=== PATIENT | male | born 1985 | race Two or more races ===

== ENCOUNTER 2017-11-18 11:57 | Inpatient (IN) | payer BC, OTHER ==
[~2017-11-18] VITALS: Ht 177.8 cm; Wt 83.9 kg
[2017-11-18 16:00] VITALS: BP 134/86
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
[2017-11-18] MEDS ORDERED: IBUPROFEN 600 MG TABLET PO PRN (16:30)
[2017-11-18] MEDS ORDERED: MAGNESIUM HYDROXIDE 30 ML LIQUID UDC PO PRN (16:30)
[2017-11-18] MEDS ORDERED: ONDANSETRON 4 MG/2 ML VIAL IM PRN (16:30)
[2017-11-18] MEDS ORDERED: MAG HYDROX/AL HYDROX/SIMETH 30 ML LIQUID UDC PO PRN (16:30)
[2017-11-18] MEDS ORDERED: MIRALAX 17 GM POWD.PACK PO PRN (16:30)
[2017-11-18] MEDS ORDERED: NICOTINE 14 MG/24HR PATCH TD PRN (16:30)
[2017-11-18] MEDS ORDERED: NICOTINE POLACRILEX 4 MG GUM-PK OF TEN BC PRN (16:30)
[2017-11-18] MEDS ORDERED: HYDROXYZINE PAMOATE 25 MG CAPSULE PO PRN (16:30)
[2017-11-18] MEDS ORDERED: diphenhydrAMINE 50 MG CAPSULE PO PRN (16:30)
[2017-11-18] MEDS ORDERED: ACETAMINOPHEN 325 MG TABLET PO PRN (16:30)
[2017-11-18] MEDS ORDERED: LORAZEPAM 1 MG TABLET PO PRN (16:30)
[2017-11-18] MEDS ORDERED: CLONIDINE HCL 0.1 MG TABLET PO PRN (16:30)
[2017-11-18] MEDS ORDERED: LOPERAMIDE HCL 2 MG CAPSULE PO PRN ×2 (16:30)
[2017-11-18] MEDS ORDERED: ONDANSETRON ODT 4 MG TAB.RAPDIS SL PRN (16:30)
[2017-11-18] MEDS ORDERED: BUPRENORPHINE HCL 2 MG TAB.SUBL SL PRN (16:30)
[2017-11-18 17:03] LABS: *AMPHETAMINE, URINE NEGATIVE (NEGATIVE); *BARBITURATE, URINE NEGATIVE (NEGATIVE); *CANNABINOID, URINE NEGATIVE (NEGATIVE); *COCCAINE, URINE NEGATIVE (NEGATIVE); *OPIATE, URINE POSITIVE (NEGATIVE); *PHENCYCLIDINE SCREEN,URINE NEGATIVE (NEGATIVE)
[2017-11-18 17:40] LABS: BASOPHILS % (AUTO) 0.8 % (0.0-2.0); EOSINOPHILS # (AUTO) 0.2 K/uL (0.0-0.7); EOSINOPHILS % (AUTO) 2.5 % (0.0-7.0); HEMATOCRIT 42.5 % (36.7-47.1); HEMOGLOBIN 14.6 g/dL (12.5-16.3); LYMPHOCYTES # (AUTO) 2.4 K/uL (20.0-40.0); LYMPHOCYTES % (AUTO) 39.1 % (20.5-51.5); MEAN CORPUSCULAR HEMOGLOBIN 30.7 uug (23.8-33.4); MEAN CORPUSCULAR HGB CONC 34 g/dL (32.5-36.3); MEAN CORPUSCULAR VOLUME 89.2 fL (73.0-96.2); MONOCYTES # (AUTO) 0.4 K/uL (2.0-10.0); MONOCYTES % (AUTO) 7.4 % (0.0-11.0); NEUTROPHILS # (AUTO) 3.1 K/uL (1.8-8.9); NEUTROPHILS % (AUTO) 50.2 % (38.5-71.5); PLATELET COUNT (AUTO) 251 K/uL (152-348); RED BLOOD CELL COUNT(AUTO) 4.77 MIL/uL (4.06-5.63); WHITE BLOOD COUNT (AUTO) 6.1 K/uL (3.6-10.2)
--- NOTE | 2017-11-18 17:49 | NUR ---
ADMISSION: A 5 YO MALE ADMITTED FOR MEDICALLY SUPERVISED W/D OF NORCO (OPIATES). HE PRESENTS WITH BLUNTED AFFECT AND SAD MOOD. HE IS A/O X 4 WITH WARM DRY SKIN INTACT. HIS PUPILS ARE PIN POINTED. HE BECAME TEARFUL DURING ASSESSMENT. HE STATES HE USES 120 MG OF NORCO AT 1030 THIS AM AND IS NOT FEELING SICK YET. HE STATES HE IS TAKING 240 MG PO PER DAY IN THIS PATTERN FOR 4 MONTHS WITH A 5 YEAR HISTORY OF USE.HE STATES HE MADE AN ATTEMPT TO QUIT ON HIS OWN 5 MONTHS AGO AND LASTED A MONTH BUT HE JUST COULDN'T COPE WITH EVERY DAY STRESSES AND THE CRAVINGS WERE TOO MUCH. HE HAS NEVER BEEN IN DETOX OR TREATMENT. HE STATES HE USED FOR BACK PAIN 5 YEARS AGO BUT NOW HE JUST USES BECAUSE HE HAS TO AND CANNOT STOP. HE LIVES WITH LONG TIME GIRLFRIEND AND 3 KIDS. HE STATES IT IS STRAINING HIS RELATIONSHIP AND FINANCES. HE STATES HE IS AFRAID THAT HE WILL IF HE DOESN'T STOP USING AND NEEDS HELP. HE REPORTS A HX OF ANXIETY,DEPRESSION AND HERNIATED DISC TO LOWER BACK . HE STATES HE TAKES NO HOME MEDS AND BROUGHT NONE. HE DENIES A PCP. HE DENIES S/I AND H/I. ORIENTED PT TO STAFF AND UNIT. OFFERED SUPPORT. REASSURED PT THAT NURSING STAFF IS AVAILABLE 03/02 . WILL PROVIDE SAFE AND SUPPORTIVE ENVIRONMENT AND MANAGE S/S OF W/D.
[2017-11-18 17:58] LABS: ALANINE AMINOTRANSFERASE 37 U/L (16-63); ALKALINE PHOSPHATASE 70 U/L (50-136); ASPARTATE AMINOTRANSFERASE 21 U/L (15-37); BILIRUBIN,TOTAL 0.9 mg/dL (0.2-1.0); CARBON DIOXIDE 30 mmol/L (21-32); CHLORIDE 100 mmol/L (98-107); CREATININE 0.9 mg/dL (0.6-1.3); ETHANOL < 3 MG/DL (0-0); GLUCOSE 94 mg/dL (74-106); MAGNESIUM 2.1 mg/dL (1.8-2.4); POTASSIUM 3.8 mmol/L (3.5-5.1); UREA NITROGEN, BLOOD 9 mg/dL (7-18)
--- NOTE | 2017-11-18 18:45 | NUR ---
END OF SHIFT: PT WAS ADMITTED LATE THIS AFTERNOON FOR OPIATE W/D FROM [place]. HE IS LAYING IN BED AND MILDLY INTOXICATED AT TGIS TIME SO COWS DEFERRED. HE IS WATCHING TV WITH BED LOCKED AND LOW AND CALL ROGERS IN REACH. HE IS INCREASING FLUID INTAKE ENCOURAGED. WILL PASS SHIFT REPORT TO ONCOMING NIGHT NURSE.
[2017-11-18 20:00] VITALS: BP 132/91
--- NOTE | 2017-11-18 20:00 | NUR ---
Start of Shift Note Received a 32 y/o male px, admitted for medically supervised withdrawal from [place] and marijuana. Px will be placed on 5 day Subutex taper to start on 11/19/2017. On PRN Subutex today. No reported COWS from AM shift due to intoxication, no withdrawal signs yet. During the rounds at 1999, px is awake on bed in fowlers position, watching TV. Px appears disheveled and unshaven with good eye contact. Px is not experiencing withdrawals yet. Px stated that he has anxiety of 5/10. Px requested for a pill to help him sleep tonight. Bed on lowest position, side rails up 2x, and call light within reach. We'll continue to monitor.
--- NOTE | 2017-11-18 21:00 | NUR ---
PRN medications Benadryl 50 mg/cap, 1 cap given PO as PRN med for insomnia. Clonidine 0.1 mg/tab, 1 tab given PO as PRN for anxiety. We'll continue to monitor.
[2017-11-18 22:00] VITALS: BP 123/86
--- NOTE | 2017-11-18 22:00 | NUR ---
Reassessment of Anxiety Px stated that his anxiety improved to 3-4/10 after an hour of administration of Clonidine 0.1 mg PO. BP= 123/86. We'll continue to monitor.
[2017-11-19] VITALS: BP 109/63
[2017-11-19 04:00] VITALS: BP 111/66
--- NOTE | 2017-11-19 04:00 | NUR ---
COWS deferred COWS deferred at 0000 and 0400 due to the px is asleep, to assess if the px is awake per doctor's order. We'll continue to monitor.
--- NOTE | 2017-11-19 07:10 | NUR ---
End of Shift Note During the shift at 2100, px received Benadryl 50 mg PO for insomnia and Clonidine 0.1 mg PO as PRN medications. They were effective. Px's oral intake is 500 ml, voided 2x, No BM. Px slept for 8 hours. At 0630, px is asleep on bed in left side lying position. COWS deferred due to the px is intoxicated and/or asleep. Bed on lowest position, side rails up 2x, and call light within reach. We'll continue to monitor. Px endorsed to AM shift nurse.
[2017-11-19 08:00] VITALS: BP 118/65
--- NOTE | 2017-11-19 08:15 | NUR ---
START OF SHIFT: RECEIVED PT A/O X 4. HE PRESENTS WITH BLUNTED AFFECT AND DEPRESSED MOOD. HE IS FIDGETY AND HIS LEGS ARE MOVING CONSTANTLY DURING ASSESSMENT. HE DENIES S/I AND H/I.HE STATES HE SLEPT VERY RESTLESS AND APPETITE IS POOR. HE REPORTS BODY ACHES,RESTLESSNESS,ANXIETY,IRRITABILITY,RUNNY NOSE AND YAWNING. COWS 15. SUBUTEX ADMINISTERED ORDERED. WILL CONTINUE TO MONITOR AND MANAGE S/S OF W/D.
[2017-11-19] MEDS: BUPRENORPHINE HCL 2 MG TAB.SUBL SL SCH ×3 (08:57→21:18)
[2017-11-19] MEDS ORDERED: TUBERCULIN,PURIF.PROT.DERIV. 5 TU/0.1 ML TEST ID ONE (09:00)
[2017-11-19 12:00] VITALS: BP 133/77
[2017-11-19 16:00] VITALS: BP 93/63
--- NOTE | 2017-11-19 18:56 | NUR ---
END OF SHIFT: PT STARTED SUBUTEX TAPER THIS AM. HE C/O BODY ACHES,SWEATS, CHILLS,ANXIETY AND RESTLESSNESS. LAST COWS 13. HE WAS COMPLIANT WITH INCREASED FLUID INTAKE ENCOURAGED AND REST. PPD IMPLANTED TO LFA. HE STATES THE DETOX MEDS ARE EFFECTIVE. NO PRNS GIVEN. WILL PASS SHIFT REPORT TO ONCOMING NIGHT NURSE.
--- NOTE | 2017-11-19 19:30 | NUR ---
START OF SHIFT Pt is a 32 y/o male admitted on 11/18/17 for opiate withdrawal. Pt is on a 5 day Subutex taper that started today, tolerating well. Last CIWA 13 and no PRNs administered during day shift. Upon assessment, pt presents with anxiety, restlessness, difficulty falling asleep, body aches 6/10, sweats, headache, unkempt room, flat affect, poor eye contact, anhedonia, dysphoria and is isolative. Medications due. Safety measures in place. Call light within reach. Will continue to monitor.
[2017-11-19 20:00] VITALS: BP 112/66
[2017-11-19] MEDS: CLONIDINE HCL 0.1 MG TABLET PO SCH (21:00)
[2017-11-19] MEDS: TRAZODONE 50 MG TABLET PO PRN (21:18)
[2017-11-19] MEDS: GABAPENTIN 300 MG CAPSULE PO SCH (21:18)
--- NOTE | 2017-11-19 21:18 | NUR ---
PRN TRAZODONE, VISTARIL AND ROBAXIN ADMINISTRATION Pt requests Trazodone for sleep aid and complains of anxiety and body aches 12/21. Appears anxious and restless. Safety measures in place. Call light within reach. Will continue to monitor.
[2017-11-19] MEDS: METHOCARBAMOL 750 MG TABLET PO PRN (21:21)
--- NOTE | 2017-11-19 22:18 | NUR ---
PRN TRAZODONE, VISTARIL AND ROBAXIN REASSESSMENT Pt laying in bed with eyes closed, medications noted effective. Respirations even and unlabored. Safety measures in place. Call light within reach. Will continue to monitor.
[2017-11-20] VITALS: BP 104/55
--- NOTE | 2017-11-20 | NUR ---
COWS DEFERRED Pt laying in bed with eyes closed, COWS deferred, to be assessed when pt is awake per orders. Respirations even and unlabored. Safety measures in place. Call light within reach. Will continue to monitor.
[2017-11-20 04:00] VITALS: BP 109/58
--- NOTE | 2017-11-20 07:00 | NUR ---
END OF SHIFT Pt is a 32 y/o male admitted on 11/18/17 for opiate withdrawal. Pt is on a 5 day Subutex taper that started on 11/19/17, tolerating well. Pt presented with anxiety, restlessness, difficulty falling asleep, body aches 6/10, sweats, headache, unkempt room, flat affect, poor eye contact, anhedonia, dysphoria and is isolative. Scheduled medications and PRN Trazodone, Vistaril and Robaxin administered, effective in S/S of withdrawal as verbalized by pt. Last COWS 9. Pt slept 8 hours. Intake 1355 ml, void x 3, stool x 1. Safety measures in place. Call light within reach. Pts needs have been met. Endorsed to day shift nurse.
--- NOTE | 2017-11-20 07:20 | NUR ---
Start of Shift Notes: Received patient in his room. Alert and oriented x 4. Verbally responsive. Denies S/I or H/I. No AV hallucinations noted. Patient is a 32 year old male admitted for opiate withdrawal who was placed on a 5-day Subutex taper as ordered. No adverse reactions noted. Has past medical hx of anxiety, depression and herniated disc. He states "I feel OK, I just woke up though." Educated patient on his current plan of care for the day and his medication regimen. Encouraged oral fluid intake and encouraged group participation to learn new skills to prevent relapse. Will continue to monitor.
[2017-11-20 08:00] VITALS: BP 105/64
[2017-11-20 08:06] LABS: HEPATITIS B SURFACE AG Negative (Negative)
[2017-11-20] MEDS: GABAPENTIN 300 MG CAPSULE PO SCH ×2 (08:35→21:08)
[2017-11-20] MEDS: CLONIDINE HCL 0.1 MG TABLET PO SCH ×2 (08:35→21:07)
[2017-11-20] MEDS ORDERED: BUPRENORPHINE HCL 2 MG TAB.SUBL SL SCH (09:00)
[2017-11-20 12:00] VITALS: BP 97/55
[2017-11-20] MEDS: BUPRENORPHINE HCL 2 MG TAB.SUBL SL SCH ×2 (14:00→21:07)
--- NOTE | 2017-11-20 14:03 | NUR ---
Client was prompted to attend group counseling sessions twice daily. Client stated he would attend this afternoon's group session as he is feeling less fatigued.
[2017-11-20 16:00] VITALS: BP 126/84
--- NOTE | 2017-11-20 19:05 | NUR ---
End of Shift Notes: Patient continues to be on 5-day Subutex taper as ordered. No adverse reactions noted. VS monitored closely. No significant abnormalities noted. Withdrawal symptoms were closely monitored. Initial COWS 10, patient presented with restlessness, myalgia, pupil dilation, anxiety, agitation, chills and hot flashes. Last COWS 8. Per patient, Subutex has been effective in reducing his withdrawal symptoms. He was encouraged to participate in group and activities due to his withdrawal symptoms. He isolates self at times and requires encouragement to socialize with his peers. Seen and examined by Dr. Mukherjee today. All needs met and attended. Will continue to monitor closely.
--- NOTE | 2017-11-20 19:30 | NUR ---
Start of Shift Note Received a 32 y/o male px, admitted for medically supervised withdrawal from [place] and marijuana. Px is placed on 5 day Subutex taper started on 11/19/2017. Px is tolerating it. Last reported COWS 8 from AM shift nurse. During the rounds at 1930, px is awake on bed in fowlers position, watching TV. Px appears disheveled and unshaven. Room is odorous. Unfinished drinks noted on top of bed side table. Px stated that he has anxiety of 2/10 and H/A of 6/10. Px requested for a pill to help him sleep tonight. Bed on lowest position, side rails up 2x, and call light within reach. We'll continue to monitor.
[2017-11-20 20:00] VITALS: BP 132/82
[2017-11-20] MEDS: TRAZODONE 50 MG TABLET PO PRN (21:16)
--- NOTE | 2017-11-20 21:16 | NUR ---
PRN medications At 2106, px received Motrin 600 mg/tab, 1 tab PO as PRN for H/A of 12/21. At 2115, px received Desyrel 50 mg/tab, 1 tab PO as PRN for insomnia. We'll continue to monitor.
--- NOTE | 2017-11-20 22:10 | NUR ---
Reassessment of H/A Px stated that his H/A is gone after an hour of administration of Motrin 600 mg PO.
[2017-11-21] VITALS: BP 104/54
[2017-11-21 04:00] VITALS: BP 111/59
--- NOTE | 2017-11-21 07:02 | NUR ---
End of Shift Note During the shift at 2106, px received Motrin 600 mg PO for H/A of 12/21 as PRN medication. It was effective. At 2115, Desyrel 50 mg given PO as PRN medication for insomnia. It was effective. Px slept for total of 8.5 hours. Px's oral intake is 1,200 ml, voided 3x, with No BM. At 0630, px is asleep on bed in right side lying position. Last COWS 6. Bed on lowest position, side rails up 2x, and call light within reach. We'll continue to monitor. Px is endorsed to AM shift nurse.
--- NOTE | 2017-11-21 07:30 | NUR ---
Start of Shift Rv Detailer received report on 32 year old male admitted to [facility] on 11/18/17 for medical management of Opiate withdrawals. Pt endorses NKA, full code and regular diet. Pt endorses PMH of herniated disc and a PPH of anxiety and depression. Pt currently on Subutex taper, tolerating well with last COWS 6, per report. Pt was administered Trazodone(insomnia) and Motrin(pain) on NOC, per report. Rv Detailer encounters pt in his room resting with eyes closed, rise and fall of chest noted, with even and unlabored respiration. Bed in low positions with wheels locked and side rails up x2. Will continue to monitor, support and encourage according to plan of care.
[2017-11-21 08:34] VITALS: BP 95/54
[2017-11-21] MEDS: BUPRENORPHINE HCL 2 MG TAB.SUBL SL SCH ×3 (08:51→20:28)
[2017-11-21] MEDS: GABAPENTIN 300 MG CAPSULE PO SCH ×3 (08:51→20:27)
[2017-11-21] MEDS: METHOCARBAMOL 750 MG TABLET PO PRN (08:51)
--- NOTE | 2017-11-21 08:51 | NUR ---
SONNY Garcia Pt complain of muscle spasms with pain 01/20, pt has attempted non-pharmacological intervention with no relief. Engine Test Cell Technician administered medication to order and pt toelrated well. Will continue to monitor, support and encourage according to plan of care.
[2017-11-21] MEDS: CLONIDINE HCL 0.1 MG TABLET PO SCH ×2 (08:52→20:29)
--- NOTE | 2017-11-21 09:51 | NUR ---
PRN Re-Assessment Pt endorses relief, pain at 4/10. Will continue to monitor, support and encourage according to plan of care.
[2017-11-21] MEDS ORDERED: ASPIRIN/ACETAMINOPHEN/CAFFEINE TABLET PO PRN (10:30)
[2017-11-21] MEDS ORDERED: KETOROLAC TROMETHAMINE 30 MG INJ IM PRN (10:30)
[2017-11-21 12:23] VITALS: BP 119/81
[2017-11-21 16:30] VITALS: BP 114/74
--- NOTE | 2017-11-21 18:50 | NUR ---
START OF SHIFT NOTE: Presented patient is a 32 year male admitted for safety withdrawal under medical supervision from Opioid/"[place] PO" and Marijuana. The patient continues 5 Day Subutex Taper since 11/19/2017, which tolerated well. Patient is alert and oriented x4. He is appears worry, agitated with anxious mood. Speech is clear and soft. The most recent COWS=6 per day shift nurse report. During the day shift patient presented with symptoms of withdrawal of anxiety, agitation, nervousness, body aches, myalgia, tremors, nasal congestion, restlessness, and fatigue. VSWNL. PRN Robaxin 750 mg administrated for myalgia as ordered at 0851 was effective. Skin is intact, warm, and dry to touch. Encouraged fluids as tolerated. Encouraged to attend activities groups. All needs met. Safety measures on place. Call light within reach, bed in lowest position locked, padded rails up bilaterally. Patient endorsed by day shift nurse. Will continue to monitor closely.
--- NOTE | 2017-11-21 18:50 | NUR ---
End of Shift Home Health Clinical Liaison provided report on 32 year old male admitted to [facility] on 11/18/17 for medical management of Opiate withdrawals. Pt endorses NKA, full code and regular diet. Pt endorses PMH of herniated disc and a PPH of anxiety and depression. Pt currently on Subutex taper, tolerating well with last COWS 6 recorded at 1630. Pt administered Robaxin(muscle spasms) on my shift. Pt is calm and cooperative. A/O and able to make needs known. Pleasant and polite. Clear speech and thought content. Pt has been isolative, out for smokes only. Bed in low positions with wheels locked and side rails up x2.
[2017-11-21 20:00] VITALS: BP 122/72
[2017-11-21] MEDS: DICYCLOMINE HCL 20 MG TABLET PO SCH (20:28)
[2017-11-21] MEDS: BACLOFEN 10 MG TABLET PO SCH (20:29)
[2017-11-21] MEDS: TRAZODONE 50 MG TABLET PO PRN (20:30)
--- NOTE | 2017-11-21 20:30 | NUR ---
PRN TRAZODONE 50 MG 1 TAB PO ADMINISTRATION Patient c/o insomnia. PRN Trazodone 50 mg 1 tab. PO administrated with full glass of water as ordered. Patient tolerated well. Safe and calm environment provided. All needs met. Safety measures in place: Call light within reach, bed locked in lowest position, padded bed rails up bilaterally. Will continue to monitor closely.
--- NOTE | 2017-11-21 21:30 | NUR ---
RE-ASSESSMENT Patient is sleeping. RR 15. Respirations even and unlabored. PRN Trazodone 50 mg 1 tab. PO administrated @2029 was effective. All needs met. Safety measures on place. Call light within reach, bed in lowest position locked, padded rails up bilaterally. Will continue to monitor closely.
[2017-11-22] VITALS: BP 99/55
--- NOTE | 2017-11-22 04:00 | NUR ---
VS REFUSED, COWS DEFERRED VS refused, COWS deferred at 0400 due to patient sleeping; to be assessed and scored while patient is awake. Patient's respirations are even and unlabored. RR:17. All needs met. Safety measures in place: Call light within reach, bed locked in low position, padded side rails up x2. Will continue to monitor closely.
--- NOTE | 2017-11-22 06:56 | NUR ---
START OF SHIFT NOTE: Endorsed patient is a 32 year old male presented for safety withdrawal from Opioid/[place] and Marijuana, continues ordered 5 day Subutex Taper. He is tolerated well. Patient is alert and oriented x4. Patient appears sad, worry, with liable mood. Encouraged to express his feelings. Emotional and reassuring provided. Patient noted unshaven, disheveled, unkempt, and uncombed. COWS=11 at 2000, COWS=7 at 0000. Patient presented with anxiety, agitation, depression, nervousness, tremors, sweating, restlessness, insomnia, and fatigue. PRN Trazodone 50 mg PO administrated for insomnia at 2030 was effective. Safe and calm environment with minimized noises was provided. Patient remains compliant with treatment, medications, and diet regime. Encouraged to fluids intake as tolerated. Patient slept 6 hours, intake 1,092 ml, voided x2, stool x1. Encouraged to fluid intake as tolerated. Encourage to attended groups activities. Patient scheduled discharging today. All needs met. Safety measures in the place: Call light within reach, bed locked in the lowest position, padded rails up x2. Patient endorsed to day shift nurse.
--- NOTE | 2017-11-22 07:15 | NUR ---
START OF SHIFT : PATIENT IS A 32 YR OLD MALE ADMITTED TO [facility] ON 11/18/17 FOR A MEDICALLY SUPERVISED WITHDRAWAL FROM OPIATES ( NORCO). HE IS ON A 5 DAY SUBUTEX TAPER AND THIS IS DAY 3. PATIENT IS ASLEEP IN BED AT THIS TIME, BREATHING EVEN AND UNLABORED, SIDE RAILS UP X 2. HE SLEPT FOR 6 + HOURS AND LAST COWS 7. PRN MEDS GIVEN ON PM SHIFT : TRAZODONE. CONTINUE TO FOLLOW MD PLAN OF CARE.
[2017-11-22 08:00] VITALS: BP 106/61
[2017-11-22] MEDS: GABAPENTIN 300 MG CAPSULE PO SCH ×3 (08:53→20:19)
[2017-11-22] MEDS: CLONIDINE HCL 0.1 MG TABLET PO SCH ×2 (08:54→20:20)
[2017-11-22] MEDS: DICYCLOMINE HCL 20 MG TABLET PO SCH ×3 (08:54→20:20)
[2017-11-22] MEDS: BUPRENORPHINE HCL 2 MG TAB.SUBL SL SCH ×2 (08:54→20:19)
[2017-11-22] MEDS: BACLOFEN 10 MG TABLET PO SCH ×3 (08:56→20:20)
[2017-11-22 12:00] VITALS: BP 108/75
[2017-11-22] MEDS: LIDOCAINE 5% PATCH TD SCH (12:54)
[2017-11-22 16:00] VITALS: BP 129/79
--- NOTE | 2017-11-22 18:50 | NUR ---
END OF SHIFT : PATIENT IS A 32 YR OLD MALE ADMITTED TO [facility] ON 11/18/17 FOR A MEDICALLY SUPERVISED WITHDRAWAL FROM OPIATES , HE IS ON A 5 DAY SUBUTEX TAPER WHICH IS WELL TOLERATED. PATIENT DID NOT REQUEST OR REQUIRE ANY PRN MEDS THIS SHIFT. HE HAS ATTENDED ALL GROUPS AND INTERACTED WITH HIS PEERS TODAY. PATIENT PRESENTS WITH A SAD , DEPRESSED AFFECT. LIDOCAINE PATCH APPLIED TO LOWER BACK FOR RELIEF FROM HERNIATED DISC WITH POSITIVE RESULTS. PATIENT HAD A FLUID INTAKE OF 3000 ML,5 VOIDS AND 1BM. LAST COWS 7 @ 1600. CONTINUE TO FOLLOW MD PLAN OF CARE . ENDORSED TO NIGHT NURSE.
--- NOTE | 2017-11-22 19:53 | NUR ---
START OF SHIFT NOTE Received report from outgoing nurse. Pt. is a 32 y/o male admitted for medically supervised withdrawal from Opiates. Pt. is on a 5 day Subutex taper, today is day 4. Pt. is A/O to person, place, time, and purpose. Pt. presents with anxiety, depression, flat affect, restlessness, and insomnia. Pt. denies S/I and H/I. Pt. received no PRN medications during previous shift. Last COWS 7 @ 1600. Call light within reach. Pt. will continue to be monitored and needs met.
[2017-11-22 20:00] VITALS: BP 134/89
[2017-11-22] MEDS: TRAZODONE 50 MG TABLET PO PRN (20:20)
--- NOTE | 2017-11-22 20:20 | NUR ---
PRN MEDICATION PRN Trazadone 50 mg given. Pt. c/o restlessness and inability to fall asleep, as well as, staying asleep. Will reassess in 1 hour.
--- NOTE | 2017-11-22 21:20 | NUR ---
PRN REASSESSMENT Pt. in bed and eyes closed. Pt.'s breathing is unlabored and even.
--- NOTE | 2017-11-23 | NUR ---
RN NOTE Pt. deferred COWS and refused V/S. Pt. is in bed w/ his eyes closed. Pt.'s breathing is even and unlabored.
--- NOTE | 2017-11-23 04:15 | NUR ---
RN NOTE Pt. deferred COWS and refused V/S. Pt. is in bed w/ his eyes closed. Pt.'s breathing is unlabored and even.
--- NOTE | 2017-11-23 07:03 | NUR ---
END OF SHIFT NOTE Endorsed report to oncoming nurse. Pt. is a 32 y/o male admitted for medically supervised withdrawal from Opiates. Pt. is on a 5 day Subutex taper, today is day 4. Pt. is A/O to person, place, time, and purpose. Pt. continues to present with anxiety, depression, flat affect, restlessness, and insomnia. Pt. denies S/I and H/I. Pt. received PRN Trazodone 50 mg @ 2019 for depression and insomnia, it was noted effective. Pt.s fluid intake was 500 mL. Pt. voided 3 times and slept for 6.75 hrs. Last COWS 7 @ 1999. Call light within reach.
--- NOTE | 2017-11-23 07:30 | NUR ---
Start of shift note; Received report from night nurse. Patient is a 32 year old male admitted on 11/18/17 for Opiate withdrawals. Patient was placed on a 5 day Subutex taper. Patient is AOx4, complaining of muscle aches, diaphoresis, anxiety. Educated patient regarding the importance of compliance to treatment, patent verbalized understanding. All safety measures secured. Will continue to monitor patient.
[2017-11-23 08:00] VITALS: BP 109/70
[2017-11-23] MEDS ORDERED: BUPRENORPHINE HCL 2 MG TAB.SUBL SL SCH (09:00)
[2017-11-23] MEDS: LIDOCAINE 5% PATCH TD SCH (09:23)
[2017-11-23] MEDS: CLONIDINE HCL 0.1 MG TABLET PO SCH ×2 (09:23→20:27)
[2017-11-23] MEDS: GABAPENTIN 300 MG CAPSULE PO SCH ×3 (09:23→20:27)
[2017-11-23] MEDS: DICYCLOMINE HCL 20 MG TABLET PO SCH ×3 (09:23→20:27)
[2017-11-23] MEDS: BACLOFEN 10 MG TABLET PO SCH ×3 (09:23→20:27)
[2017-11-23 12:00] VITALS: BP 130/85
[2017-11-23 16:00] VITALS: BP 124/81
[2017-11-23] MEDS ORDERED: METH-406 PO (17:01)
[2017-11-23] MEDS ORDERED: GABA-534 PO (17:01)
[2017-11-23] MEDS ORDERED: DICY20TA28 PO (17:01)
[2017-11-23] MEDS ORDERED: CLON0.1T14 PO (17:01)
[2017-11-23] MEDS ORDERED: LIDO30AD10 TD (17:01)
[2017-11-23] MEDS ORDERED: HYDR-3895 PO (17:01)
[2017-11-23] MEDS ORDERED: IBUP-1955 PO (17:01)
--- NOTE | 2017-11-23 18:50 | NUR ---
End of shift note; Patient is AOX4. Patient remained compliant with treatment plan and medication regime. Patient participated in group activities and therapies. Patient is medically cleared for discharge tomorrow. Patient's last COWS score is 8. All safety measures secured. Met all needs.
--- NOTE | 2017-11-23 19:48 | NUR ---
START OF SHIFT NOTE Received report from outgoing nurse. Pt is in his room and is A/O to person, place, time, and purpose. Pt. is presenting with anxiety, flat affect, and worried demeanor. Pt. denies any S/I or H/I. Pt. has been compliant with treatment. Pt. has completed taper and did not received any PRN medications on previous shift. Pt. is being discharged tomorrow 11/24/17. Last COWS 8 @ 1600. Call light within reach. Pt. will continue to be monitored and needs met.
[2017-11-23 20:08] VITALS: BP 133/92
[2017-11-23] MEDS: TRAZODONE 50 MG TABLET PO PRN (20:27)
--- NOTE | 2017-11-23 20:27 | NUR ---
PRN ADMINISTRATION PRN Trazodone 50 mg given. Pt. c/o anxiety and insomnia. Will reassess in 1 hour.
--- NOTE | 2017-11-23 21:27 | NUR ---
PRN REASSESSMENT Pt. is in bed w/ his eyes closed. Pt.'s breathing is unlabored and even.
--- NOTE | 2017-11-24 00:12 | NUR ---
RN NOTE Pt. deferred COWS and refused V/S. Pt. is in bed w/ his eyes closed. Pt.'s breathing is even and unlabored.
--- NOTE | 2017-11-24 04:16 | NUR ---
RN NOTE Pt. deferred COWS and refused V/S. Pt. is in bed w/ his eyes closed. Pt.'s breathing is unlabored and even.
--- NOTE | 2017-11-24 07:06 | NUR ---
END OF SHIFT NOTE Endorsed report to oncoming nurse. Pt. is a 32 y/o male admitted for medically supervised withdrawal from Opiates. Pt is in his room and is A/O to person, place, time, and purpose. Pt. continues to present with anxiety, flat affect, and worried demeanor. Pt. denies any S/I or H/I. Pt. has been compliant with treatment. Pt. has completed taper. Pt. received PRN Trazodone 50 mg @ 2026 for insomnia and anxiety, noted effective. Pt.s fluid intake was 2855 ml. Pt voided 4 times, had 2 BMs, and slept for 7 hrs. Last COWS 8 @ 1999. Call light within reach.
--- NOTE | 2017-11-24 07:30 | NUR ---
start of shift note: received pt from shift supervisor melting nurse, pt is in stable condition at this time no s/s of pain or discomfort. pt is admitted [facility] for [facility]iate withdrawal/dependence. pt last documented cows is 8, pt is set to discharge today. will assist pt in discharging and will continue to monitor pt for any changes.
[2017-11-24] MEDS: GABAPENTIN 300 MG CAPSULE PO SCH (08:19)
[2017-11-24] MEDS: DICYCLOMINE HCL 20 MG TABLET PO SCH (08:19)
[2017-11-24] MEDS: LIDOCAINE 5% PATCH TD SCH (08:20)
[2017-11-24] MEDS: CLONIDINE HCL 0.1 MG TABLET PO SCH (08:20)
[2017-11-24] MEDS: BACLOFEN 10 MG TABLET PO SCH (08:20)
[2017-11-24 09:00] VITALS: BP 149/69
--- NOTE | 2017-11-24 09:28 | NUR ---
Discharge note: pt left the unit in stable condition no s/ s of pain or discomfort, or any acute withdrawal symptoms. pt teaching administered and pt verbalized understanding. all personal belongings were returned, pt was transferred to treatment via private car
== END 2017-11-24 09:28 | disposition other institution (70) | DRG 895 ==
LOC: SRC 15:01
PROVIDERS: ADMIT Internal Medicine; ATTEND Internal Medicine
PROC: HZ2ZZZZ Detoxification Services for Substance Abuse Treatment (ICD-10-PCS; principal; 2017-11-18)
PROC: HZ41ZZZ Group Counseling for Substance Abuse Treatment, Behavioral (ICD-10-PCS; 2017-11-20)
PROC: HZ31ZZZ Individual Counseling for Substance Abuse Treatment, Behavioral (ICD-10-PCS; 2017-11-20)
DX: F11.23 Opioid dependence with withdrawal (principal); F12.90 Cannabis use, unspecified, uncomplicated; F17.210 Nicotine dependence, cigarettes, uncomplicated; G89.29 Other chronic pain; J45.20 Mild intermittent asthma, uncomplicated; Z81.3 Family history of other psychoactive substance abuse and dependence; M54.5 Low back pain; Z83.3 Family history of diabetes mellitus; Z80.9 Family history of malignant neoplasm, unspecified; Z82.49 Family history of ischemic heart disease and other diseases of the circulatory system; G47.00 Insomnia, unspecified
CPT/HCPCS: 36415; 70030-TC; 80307; 80361; 83735; 85025; 86580; 86592; 86705; 86803; 87340; 87806; A4663; G0480; Q0163